=== PATIENT | male | born 1995 | race Caucasian/White ===

== ENCOUNTER 2016-06-04 12:38 | Inpatient (IN) | payer BC ==
[2016-06-04] MEDS ORDERED: HYDROmorphONE/DILAUDID 1 MG/ML SYR ONE (12:45)
[2016-06-04] MEDS ORDERED: HYDROmorphONE/DILAUDID 1 MG/ML SYR IVP ONE ×3 (12:50→15:31)
--- NOTE | 2016-06-04 12:55 | EDPHY ---
H & P Time Seen by Provider: 06/04/16 12:40 HPI/ROS: CHIEF COMPLAINT: Right femur injury suspected fracture HISTORY OF PRESENT ILLNESS: 20-year-old male arrives via ambulance, not a trauma activation, after he was skiing in his right hip impacted a tree. Unable to bear weight. Unable to bear weight, evacuated via skid wrapper in a sled. No head injury. No loss of consciousness. No amnesia. No alcohol or drug use. No midline C-spine pain. No peripheral paresthesia, weakness, numbness. Full sensation in his bilateral feet. No straddle injury. No genitalia injury. patient was placed in cervical collar by skid wrapper due to mechanism although no head or neck injury or deficits. Last oral intake was a bite of a candy bar at 9:00 a.m. REVIEW OF SYSTEMS: A ten point review of systems was performed and is negative with the exception of the items mentioned in the HPI PAST MEDICAL/SURGICAL HISTORY: no anticoagulant use, no relevant medical/ surgical history SOCIAL HISTORY: denies alcohol use at time of incident PHYSICAL EXAM 1) GENERAL: Well-developed, well-nourished, alert and oriented. Answering questions appropriately. 2) HEAD: Normocephalic, atraumatic 3) HEENT: Pupils equal, round, reactive to light bilaterally. Negative Horners. Nasopharynx, oropharynx, clear. No deformity or angulation of nose. No septal hematoma. No rhinorrhea. No oral trauma. Ears bilaterally with normal tympanic membranes. No hemotympanum. No fluid or blood in the external auditory canal. No raccoon eyes. No Virgen sign. Teeth are normally aligned with no gross malocclusion, TMJ bilaterally nontender, facial bones nontender including the zygomatic arch, maxilla mandible. 4) NECK: Cervical collar is on.Cervical collar is removed while holding inline traction and patient has no complaints of midline cervical pain, no effusion noted, trachea midline, no JVD. Cervical collar removed at that time 5) LUNGS: Clear to auscultation bilaterally, no wheezes, no rhonchi, no retractions. No obvious signs of trauma. No chest wall pain. No flaring, no grunting. Moving symmetrically. No crepitus. 6) HEART: Regular rate and rhythm, 7) ABDOMEN: No guarding, no rebound, no focal tenderness, no peritoneal signs, no signs of trauma, no ecchymosis 8) MUSCULOSKELETAL: right lower extremity: Hare traction splint in place, soft compartments, tender to palpation mid femur with intact skin. Distal DP PT pulses present and brisk with capillary refill less than 2 seconds in full sensation distally. 9) BACK: No midline vertebral tenderness, no fluctuance, no step-off, no obvious trauma, no visual or palpable abnormality. 10) SKIN: positive abrasion to the right lateral knee 11) : Normal male external genitalia bilateral testicles nontender nonswollen no evidence of trauma. DIFFERENTIAL DIAGNOSIS: in no particular include but limited to fracture, sprain , compartment syndrome - Medical/Surgical History Hx Asthma: No Hx Chronic Respiratory Disease: No Hx Diabetes: No Hx Cardiac Disease: No Hx Renal Disease: No Hx Cirrhosis: No Hx Alcoholism: No Hx HIV/AIDS: No Hx Splenectomy or Spleen Trauma: No Other PMH: denies - Social History Smoking Status: Never smoked Constitutional: Initial Vital Signs Temperature (C) 36.8 C 06/04/16 13:01 Heart Rate 52 L 06/04/16 13:01 Respiratory Rate 16 06/04/16 13:01 Blood Pressure 127/77 H 06/04/16 13:01 O2 Sat (%) 100 06/04/16 13:01 O2 Delivery Mode Room Air Allergies/Adverse Reactions: Penicillins Allergy (Severe, Verified 06/04/16 13:03) Hives Home Medications: Medication Instructions Recorded NK [No Known Home Meds] 06/04/16 Medical Decision Making - Diagnostics Imaging: Xray of the right femur interpreted by myself: Midshaft displaced femur fracture ED Course/Re-evaluation: 12:45 p.m.: Discussed case Dr. Sergio Robertson in the ER. Patient has suspected closed femur fracture, he is neurovascularly intact. 1:09 p.m.: Dr. Asif Parekh in the ER sooner to evaluate patient, with plan on taking the patient operating room later today. Patient remains NPO since 9: 00 a.m. when he had a bite of a candy bar Departure - Departure Disposition: [facility] Inpatient Acute Clinical Impression: Right femoral shaft fracture Qualifiers: Encounter type: initial encounter Fracture type: closed Fracture morphology: transverse Fracture alignment: displaced Qualified Code(s): S72.321A - Displaced transverse fracture of shaft of right femur, initial encounter for closed fracture Condition: Fair
[2016-06-04 13:34] LABS: % IMMATURE GRANULYOCYTES 0.4 % (0.0-1.1); ABSOLUTE IMMATURE GRANULOCYTES 0.05 10^3/uL (0.00-0.10); ADD DIFF? NO; ADD MORPH? NO; ADD SCAN? NO; ATYPICAL LYMPHOCYTE FLAG 0 (0-99); FRAGMENT RBC FLAG 0 (0-99); HEMATOCRIT 41.9 % (40.0-51.0); HEMOGLOBIN 14.3 g/dL (13.7-17.5); LEFT SHIFT FLG 10 (0-99); LIPEMIA HEMOLYSIS FLAG 90 (0-99); MEAN CELL HEMOGLOBIN 32.6 pg (27.9-34.1); MEAN CELL HEMOGLOBIN CONCENTR. 34.1 g/dL (32.4-36.7); MEAN CELL VOLUME 95.4 fL (81.5-99.8); MEAN PLATELET VOLUME 9.9 fL (8.7-11.7); PLATELET CLUMPS FLAG 10 (0-99); PLATELET COUNT 243 10^3/uL (150-400); RED BLOOD CELL COUNT 4.39 10^6/uL (4.40-6.38); RED CELL DISTRIBUTION WIDTH 11.9 % (11.5-15.2)
[2016-06-04] MEDS ORDERED: CLINDAMYCIN 600 MG/DEXTROSE 50 ML IV ONE (13:37)
[2016-06-04 13:41] LABS: INR 1.34 (0.83-1.16); PROTIME(PATIENT) 16.6 SEC (12.0-15.0)
[2016-06-04 13:42] LABS: APTT 28.3 SEC (23.0-38.0)
[2016-06-04] MEDS ORDERED: D5W 1/2 NS 1,000 ML IV SCH (13:45)
[2016-06-04 13:50] LABS: ANION GAP 6 mEq/L (8-16); CARBON DIOXIDE 21 mEq/l (22-31); CHLORIDE 110 mEq/L (97-110); CREATININE 0.9 mg/dL (0.7-1.3); GLOMERULAR FILTRATION RATE > 60; GLUCOSE 86 mg/dL (70-100); SODIUM 137 mEq/L (134-144)
--- NOTE | 2016-06-04 16:09 | GCON ---
ORTHOPEDIC CONSULTATION DATE OF CONSULTATION: 06/04/2016 REASON FOR CONSULTATION: Right femur fracture. HISTORY OF PRESENT ILLNESS: The patient is a 20-year-old male, who was snowboarding today at [employer] , struck a tree, and sustained a closed midshaft femur fracture on the right. Did not lose consciou sness. He was brought by EMS to the [facility] Emergency Department. X-ray s were obtained. I was consulted and saw him in the Trauma [place]. PRIOR MEDICAL HISTORY: None. SURGICAL HISTORY: None. ALLERGIES: Penicillin gives him a rash. MEDICATIONS: None. SOCIAL HISTORY: He is a [employer] student, senior, going to graduate. Does not smoke. Reports occasional alcohol use. REVIEW OF SYSTEMS: CARDIOPULMONARY: No shortness of breath. No chest pain. No loss of consciousn ess. PHYSICAL EXAMINATION: VITAL SIGNS: Temperature is 36.8, heart rate 52, respiratory rate 16, blood pressure is 127/77, oxygen saturation 100% on room air. GENERAL: Alert oriented x3. HEENT: Normo cephalic, atraumatic. Extraocular muscles intact. NECK: Supple. There is no lymphadenopathy. No JVD. CHEST: Clear to auscultation. CARDIOVASCULAR: Regular rate and rhythm. ABDOMEN: Soft, no ntender, nondistended. EXTREMITIES: Right femur shows deformity midshaft. There is quite a bit of muscle spasm. The skin is intact. Compartments are soft. He has a 2+ dorsalis pedis, posterior t ibial pulses. X-RAYS: Three views of the femur show a displaced midshaft femur fracture. ASSESSMENT: Midshaft femur fracture, right. PLAN: We will proceed with intramedullary nailing of his femur fracture. Risks and benefits, inclu ding postoperative blood clots, malunion nonunion, and possible need for hardware removal in the fut ure were discussed. He understands these risks and wished to proceed. He last ate around 9 o'clock this morning. We will plan on surgery tonight at 6 p.m. I reviewed the x-ray findings, and surgic al plan with his father, aRhat, who is in agreement with this plan. /[id number]/MODL
[2016-06-04] MEDS ORDERED: fentaNYL 250 MCG/5 ML INJ ONE (17:55)
[2016-06-04] MEDS ORDERED: PROPOFOL/EMULSION 500 MG/50 ML BOTTLE IV ONE (17:56)
[2016-06-04] MEDS ORDERED: MIDAZOLAM 2 MG/2 ML VIAL ONE (17:57)
[2016-06-04] MEDS ORDERED: BUPIVACAINE/EPI 0.5% 30 ML SDV ONE (18:24)
[2016-06-04] MEDS ORDERED: DEXAMETHASONE 4 MG/ML VIAL ONE (18:34)
[2016-06-04] MEDS ORDERED: LIDOCAINE 2% 5 ML SDV ONE (18:34)
[2016-06-04] MEDS ORDERED: epHEDrine SULFATE 10 MG/ML SYR ONE (18:34)
[2016-06-04] MEDS ORDERED: SUGAMMADEX SODIUM 200 MG/2 ML VIAL IVP ONE (18:34)
[2016-06-04] MEDS ORDERED: ONDANSETRON 4 MG/2 ML VIAL ONE (18:34)
[2016-06-04] MEDS ORDERED: KETOROLAC 30 MG/1 ML SDV ONE (18:34)
[2016-06-04] MEDS ORDERED: ROCURONIUM 50 MG/5 ML VIAL ONE (18:34)
[2016-06-04] MEDS ORDERED: METOCLOPRAMIDE 10 MG/2 ML VIAL ONE (18:34)
[2016-06-04] MEDS ORDERED: GLYCOPYRROLATE 0.2 MG/1 ML VIAL ONE (19:45)
[2016-06-04] MEDS ORDERED: PROMETHAZINE HCL 25 MG SUPPR PR PRN (20:01)
[2016-06-04] MEDS ORDERED: diphenhydrAMINE 25 MG CAP PO PRN (20:01)
[2016-06-04] MEDS ORDERED: ONDANSETRON DISINTEGRATING 4 MG TAB PO PRN (20:01)
[2016-06-04] MEDS ORDERED: ONDANSETRON 4 MG/2 ML VIAL IVP PRN (20:01)
[2016-06-04] MEDS ORDERED: TEMAZEPAM 15 MG CAP PO PRN (20:01)
[2016-06-04] MEDS ORDERED: METOCLOPRAMIDE 10 MG/2 ML VIAL IVP PRN (20:01)
[2016-06-04] MEDS ORDERED: DIPHENOXYLATE/ATROPINE LOMOTIL 1 TAB PO PRN (20:01)
[2016-06-04] MEDS ORDERED: PROMETHAZINE HCL 25 MG/ML INJ IVP PRN (20:01)
[2016-06-04] MEDS ORDERED: MEPERIDINE 25 MG/ML SYR ONE (20:02)
[2016-06-04] MEDS ORDERED: LR 1,000 ML IV SCH (20:30)
--- NOTE | 2016-06-04 21:06 | POSTOPPROG ---
Post Op Note Date of Operation: 06/04/16 Surgeon: Asif Parekh Anesthesiologist: jp Anesthesia: GET(General Endotracheal) Pre-op Diagnosis: right mid shaft femoral fracture, closed Post-op Diagnosis: same Procedure: IMN RT femur Findings: displaced mid shaft femur fracture Inf/Abcess present in the surg proc area at time of surgery?: No EBL: 50-100 Complications: none
[2016-06-04] MEDS: oxyCODONE IR 5 MG TAB PO PRN (21:36)
[2016-06-04] MEDS: KETOROLAC 30 MG/1 ML SDV IVP PRN (21:37)
[2016-06-04] MEDS: FAMOTIDINE 20 MG TAB PO SCH (21:37)
[2016-06-04] MEDS: CLINDAMYCIN 900 MG/DEXTROSE 50 ML IV SCH (22:25)
[2016-06-04] MEDS: ACETAMINOPHEN 325 MG TAB PO SCH (23:53)
[2016-06-05] MEDS: oxyCODONE IR 5 MG TAB PO PRN ×5 (00:25→20:50)
--- NOTE | 2016-06-05 01:35 | GOP ---
DATE OF OPERATION: 06/04/2016 SURGEON: Asif Parekh MD ASSOCIATE PROFESSOR OF LITERACY: Ten Taylor, CNC MACHINIST 2ND SHIFT, [facility]. ANESTHESIOLOGIST: Luz Bravo MD. PREOPERATIVE DIAGNOSIS: Displaced midshaft femur fracture, right. POSTOPERATIVE DIAGNOSIS: Displaced midshaft femur fracture, right. PROCEDURE PERFORMED: Intramedullary nailing, right femur. FINDINGS: ESTIMATED BLOOD LOSS: 200 mL. INDICATIONS: History: Jd is a 20-year-old male who struck a tree while snowboarding today at [facility]. He sustained a midshaft femur fracture. He was evaluated in the emergency departm ent. After he had been n.p.o. 8 hours, we brought him to the operating room for definitive fixation of this fracture. DESCRIPTION OF PROCEDURE: After appropriate informed consent was obtained, patient was taken to the operating room, placed supine on the operating table. Timeout performed. Patient was identified. Correct side was identified, matched with radiographs in the room. He received 900 mg of clindamyc in IV due to his penicillin allergy. Dr. Bravo administered general endotracheal tube anesthesia. He was then placed on the fracture table. Right lower extremity was placed in the traction boot. Left lower extremity was placed in a well-padded well-leg chisholm. All bony prominences were well pa dded. I then gently applied traction, internal rotation. Fluoroscopy was brought in to confirm the reduction of the fracture. We then prepped the right hip in the usual sterile fashion. Using our starting wire, we entered in the piriformis fossa and drilled our starting wire to the level of the lesser trochanter. Its position was confirmed with AP/lateral fluoroscopic imaging. We made a smal l incision around the starting wire and, using our starter reamer, we entered the femoral canal. Us ing a ball-tipped guidewire, we passed this carefully across the fracture after we added some additi onal flexion to the distal fragment. We were able to pass the wire successfully to the old physeal scar. Position of the wire was confirmed with AP/lateral fluoroscopic imaging. We then sequentiall y reamed, starting at 8.5 mm and by 5 mm increments reamed up to a size 12. We had measured the cheryl gth at 380 mm. We then, over the guidewire and using our external jig, tapped our femoral nail into place, securely seating it distally, and getting the head below the level of the bone in the pirifo rmis fossa. We then, using our external jig, placed 1 static locking screw proximally and then, usi ng the perfect campo technique and fluoroscopy, we placed 1 static locking screw distally. Wounds were irrigated. The ITB layer was closed with 0 Vicryl, superficial layer was closed with 2-0 Vicry l, and skin was closed with dion. I instilled 30 mL of 5% Marcaine with epinephrine on the incis ion. Sterile dressing was applied. Patient was taken off the fracture table, [facility], taken to the recovery room in satisfactory condition. There were no immediate intraoperative complications. Gino Taylor's assistance was required throughout the entire case. IMPLANTS USED: A Synthes piriformis entry nail 11 x 380 mm, 2 locking screws. COMPLICATIONS: None. DRAINS: None. /[id number]/MODL
[2016-06-05] MEDS: CLINDAMYCIN 900 MG/DEXTROSE 50 ML IV SCH (05:56)
[2016-06-05 05:59] LABS: HEMATOCRIT 29.3 % (40.0-51.0); HEMOGLOBIN 10.2 g/dL (13.7-17.5)
[2016-06-05] MEDS: ACETAMINOPHEN 325 MG TAB PO SCH ×4 (05:59→23:49)
[2016-06-05] MEDS: FAMOTIDINE 20 MG TAB PO SCH ×2 (08:17→19:42)
[2016-06-05] MEDS: ASPIRIN EC 325 MG TAB PO SCH (08:17)
[2016-06-05] MEDS: KETOROLAC 30 MG/1 ML SDV IVP PRN ×2 (08:26→19:11)
--- NOTE | 2016-06-05 10:28 | SOAPPROG ---
SOAP Progress Note Assessment/Plan: Assessment: POD 1 Plan: - TWB for 4 wks - PT today as tolerated - will follow 06/05/16 10:27 Subjective: Pain controlled, no issues Objective: Vital Signs Temp Pulse Resp BP Pulse Ox 36.6 C 56 L 16 129/69 H 98 06/05/16 07:15 06/05/16 07:15 06/05/16 07:15 06/05/16 07:15 06/05/16 07:15 Laboratory Results 06/05/16 04:34 06/04/16 06/05/16 06/06/16 05:59 05:59 05:59 Intake Total 3800 400 Output Total 450 100 Balance 3350 300 PT 16.6 SEC (12.0-15.0) H 06/04/16 13:15 INR 1.34 (0.83-1.16) H 06/04/16 13:15 Dressing CDI, some tension to the thigh, no evidence of compartment sydrome, 2+ distal pulses, calf is NT - Time Spent With Patient Time Spent With Patient: 15 - Pending Discharge Pending Discharge Within 24 Hours: No Pending Discharge Within 48 Hours: No ICD10 Worksheet Patient Problems: Problems Problem Status Onset Right femoral shaft fracture Acute
[2016-06-05] MEDS ORDERED: LACTULOSE 20 GM/30 ML UDCUP PO PRN (13:35)
[2016-06-05] MEDS ORDERED: POLYETHYLENE GLYCOL 3350 17 GM PKT PO PRN (13:35)
[2016-06-05] MEDS ORDERED: MAGNESIUM HYDROXIDE 30 ML UDCUP PO PRN (13:35)
[2016-06-05] MEDS ORDERED: BISACODYL 10 MG SUPP PR PRN (13:35)
[2016-06-05] MEDS: SENNOSIDES/DOCUSATE SODIUM TAB PO SCH (19:42)
[2016-06-05] MEDS: CYCLOBENZAPRINE 10 MG TAB PO PRN (19:45)
[2016-06-06] MEDS: ACETAMINOPHEN 325 MG TAB PO SCH ×2 (05:10→13:14)
[2016-06-06 05:31] LABS: HEMATOCRIT 21.9 % (40.0-51.0); HEMOGLOBIN 7.3 g/dL (13.7-17.5)
[2016-06-06] MEDS: SENNOSIDES/DOCUSATE SODIUM TAB PO SCH ×2 (09:07→19:59)
[2016-06-06] MEDS: oxyCODONE IR 5 MG TAB PO PRN (09:08)
[2016-06-06] MEDS: FAMOTIDINE 20 MG TAB PO SCH ×2 (09:08→19:59)
[2016-06-06] MEDS: ASPIRIN EC 325 MG TAB PO SCH (09:08)
[2016-06-06] MEDS: KETOROLAC 30 MG/1 ML SDV IVP PRN (09:12)
--- NOTE | 2016-06-06 12:27 | SOAPPROG ---
SOAP Progress Note Assessment/Plan: Assessment: POD 1 Plan: - TWB for 4 wks - PT today as tolerated - will follow, likely d/c tomrrow 06/05/16 10:27 06/06/16 12:27 Subjective: Pain improved, got up with PT yesterday Objective: Vital Signs Temp Pulse Resp BP Pulse Ox 36.7 C 53 L 16 113/50 L 97 06/06/16 08:00 06/06/16 08:00 06/06/16 08:00 06/06/16 08:00 06/06/16 08:00 Laboratory Results 06/06/16 04:30 06/05/16 06/06/16 06/07/16 05:59 05:59 05:59 Intake Total 3800 1550 Output Total 450 400 Balance 3350 1150 PT 16.6 SEC (12.0-15.0) H 06/04/16 13:15 INR 1.34 (0.83-1.16) H 06/04/16 13:15 Wound is CDI, some blood on the dressing, compartments soft, NVI - Time Spent With Patient Time Spent With Patient: 15 - Pending Discharge Pending Discharge Within 24 Hours: No Pending Discharge Within 48 Hours: Yes Pending Discharge Date: 06/08/16 Pending Discharge Time: 11:00 ICD10 Worksheet Patient Problems: Problems Problem Status Onset Right femoral shaft fracture Acute
[2016-06-06] MEDS: HYDROCODONE/APAP 5/325 TAB PO PRN ×3 (13:24→20:00)
[2016-06-06] MEDS: ACETAMINOPHEN 325 MG TAB PO PRN (22:21)
[2016-06-06] MEDS: CYCLOBENZAPRINE 10 MG TAB PO PRN (22:21)
[2016-06-07] MEDS: KETOROLAC 30 MG/1 ML SDV IVP PRN (00:22)
--- NOTE | 2016-06-07 05:54 | PDIAF ---
- Diagnosis Diagnosis: rt femur fracture closed Code Status: Full Code - Medication Management Discharge Medications: Medications to Continue on Transfer NK [No Known Home Meds] 06/04/16 [Last Taken Unknown] Discharge Medications: Refer to the Discharge Home Medication list for PRN reason. PICC Care - Routine: N/A - Orders Diet Recommendation: no restrictions on diet - Follow Up Care
[2016-06-07] MEDS: SENNOSIDES/DOCUSATE SODIUM TAB PO SCH ×2 (09:17→21:14)
[2016-06-07] MEDS: FAMOTIDINE 20 MG TAB PO SCH ×2 (09:17→21:14)
[2016-06-07] MEDS: ASPIRIN EC 325 MG TAB PO SCH (09:17)
[2016-06-07] MEDS: ACETAMINOPHEN 325 MG TAB PO PRN (09:23)
[2016-06-07 10:50] LABS: HEMATOCRIT 22.2 % (40.0-51.0); HEMOGLOBIN 7.5 g/dL (13.7-17.5)
[2016-06-07] MEDS: IBUPROFEN 800 MG TAB PO PRN ×2 (11:47→21:14)
--- NOTE | 2016-06-07 17:03 | SOAPPROG ---
JANY Progress Note Assessment/Plan: Assessment: POD#3 IMN rt femur acute blood loss anemia Plan: 06/07/16 17:01 Will D/C home Friday F/U [place] 2 weeks May shower in dressings now Remove dressings in 5 days ok to get incisions wet ASA x 21 days for DVT proph PAO hose x 10 days Subjective: pain better Today Headach better with ibuprofen Objective: Dressing c/d/i thigh compartment soft calf soft 5/5 df/pf 2+ dp/tp pulses Vital Signs Temp Pulse Resp BP Pulse Ox 36.8 C 72 16 124/59 H 99 06/07/16 16:00 06/07/16 16:00 06/07/16 16:00 06/07/16 16:00 06/07/16 16:00 Laboratory Results 06/07/16 10:31 06/06/16 06/07/16 06/08/16 05:59 05:59 05:59 Intake Total 1550 2000 Output Total 400 Balance 1150 2000 PT 16.6 SEC (12.0-15.0) H 06/04/16 13:15 INR 1.34 (0.83-1.16) H 06/04/16 13:15 ICD10 Worksheet Patient Problems: Problems Problem Status Onset Right femoral shaft fracture Acute
[2016-06-07] MEDS: HYDROCODONE/APAP 5/325 TAB PO PRN (23:09)
[2016-06-07 23:42] VITALS: RESP 14
[2016-06-08 08:28] VITALS: BP 113/62; PULSE 66; TEMP 98.4; O2SAT 97
[2016-06-08] MEDS: SENNOSIDES/DOCUSATE SODIUM TAB PO SCH (09:22)
[2016-06-08] MEDS: ASPIRIN EC 325 MG TAB PO SCH (09:23)
[2016-06-08] MEDS: HYDROCODONE/APAP 5/325 TAB PO PRN (09:23)
[2016-06-08] MEDS: IBUPROFEN 800 MG TAB PO PRN (09:23)
[2016-06-08] MEDS: FAMOTIDINE 20 MG TAB PO SCH (09:23)
== END 2016-06-08 11:37 | disposition home health service (06) | DRG 481 ==
LOC: EDUNIT# → F3N 15:59
PROVIDERS: ADMIT Orthopaedic Surgery; ATTEND Orthopaedic Surgery
PROC: 0QS834Z Reposition Right Femoral Shaft with Internal Fixation Device, Percutaneous Approach (ICD-10-PCS; principal; 2016-06-04 18:00)
DX: S72.391A Other fracture of shaft of right femur, initial encounter for closed fracture (principal); D62 Acute posthemorrhagic anemia; W22.09XA Striking against other stationary object, initial encounter; Y93.23 Activity, snow (alpine) (downhill) skiing, snowboarding, sledding, tobogganing and snow tubing; Y92.838 Other recreation area as the place of occurrence of the external cause; Y99.8 Other external cause status
CPT/HCPCS: 96374; 97110-GP; 97116-GP; 97161-GP; 97165-GO; 97530-GP; 97535-GO; C1713; C1769; J1100; J1170; J1885; J2250; J2405; J2550; J2704; J2765; J3010